=== PATIENT | female | born 1990 ===

== ENCOUNTER → 2021-02-05 | Outpatient (CLI) | payer OTHER | END | disposition home or self-care (01) | LOC: PRENATAL 10:00 | PROVIDERS: ATTEND Obstetrics & Gynecology Maternal & Fetal Medicine | DX: O35.0XX1 Maternal care for (suspected) central nervous system malformation in fetus, fetus 1 (principal); O35.3XX1 Maternal care for (suspected) damage to fetus from viral disease in mother, fetus 1; O98.512 Other viral diseases complicating pregnancy, second trimester; Z36.89 Encounter for other specified antenatal screening; Z3A.25 25 weeks gestation of pregnancy ==

== ENCOUNTER 2021-05-06 09:35 | Inpatient (IN) | payer OTHER ==
[~2021-05-06] VITALS: Ht 165.1 cm; Wt 68.5 kg
[2021-05-06] MEDS ORDERED: PRENATAL FORMU1 EAC2 PO (11:23)
[2021-05-09] MEDS ORDERED: IBUPROFEN800 MG PO (08:20)
[2021-05-09] MEDS ORDERED: OXYC1TAB9 PO (08:21)
== END 2021-05-09 13:45 | disposition home or self-care (01) | DRG 788 ==
LOC: OB/GYN 09:35 → LDR 09:35 → OB/GYN 18:02
PROVIDERS: Obstetrics & Gynecology; ADMIT Student in an Organized Health Care Education/Training Program; ATTEND Student in an Organized Health Care Education/Training Program
PROC: 4A1HXFZ Monitoring of Products of Conception, Cardiac Rhythm, External Approach (ICD-10-PCS; 2021-05-06)
PROC: 10D00Z1 Extraction of Products of Conception, Low, Open Approach (ICD-10-PCS; principal; 2021-05-06 15:00)
DX: O76 Abnormality in fetal heart rate and rhythm complicating labor and delivery (principal); O77.0 Labor and delivery complicated by meconium in amniotic fluid; O42.02 Full-term premature rupture of membranes, onset of labor within 24 hours of rupture; Z37.0 Single live birth; Z3A.38 38 weeks gestation of pregnancy